=== PATIENT | female | born 2000 | race Caucasian/White ===

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

== ENCOUNTER 2020-08-08 23:52 | Emergency (ER) | payer OTHER ==
[~2020-08-08] VITALS: Ht 170.2 cm; Wt 83.5 kg
== END 2020-08-09 02:42 | disposition home or self-care (01) ==
LOC: ER 23:52
DX: R68.84 Jaw pain (principal); Z88.0 Allergy status to penicillin; Z88.1 Allergy status to other antibiotic agents
CPT/HCPCS: 99282

== ENCOUNTER 2020-10-13 23:36 | Emergency (ER) | payer OTHER ==
[~2020-10-13] VITALS: Ht 170.2 cm; Wt 85.7 kg
[2020-10-14] MEDS ORDERED: CYCL10 PO (00:47)
[2020-10-14] MEDS ORDERED: IBUP600 PO (00:47)
[2020-10-15] MEDS ORDERED: Bactrim Ds Tab1 EACH PO (06:15)
[2020-10-15] MEDS ORDERED: ONDA4ODT MM (06:15)
== END 2020-10-14 00:58 | disposition home or self-care (01) ==
LOC: ER 23:36
DX: M54.5 Low back pain (principal); Z88.1 Allergy status to other antibiotic agents
CPT/HCPCS: 96372; 99283-25; A9270; J1885

== ENCOUNTER 2020-10-15 03:53 | Emergency (ER) | payer OTHER ==
[~2020-10-15] VITALS: Ht 170.2 cm; Wt 87.1 kg
[~2020-10-15 03:53] MED LIST changes: +CYCL10 PO
[2020-10-15 05:14] LABS: Source, Urine Clean Catch
[2020-10-15 05:15] LABS: Bilirubin, Urine Neg (Neg); Blood, Urine 2+ (Neg); Glucose Qualitative, Urine Neg (Neg); Ketones, Urine Neg (Neg); Leukocyte Esterase, Urine 2+ (Neg); Nitrite, Urine Neg (Neg); Protein, Urine Neg (Neg); Specific Gravity, Urine 1.025 (1.003-1.022); Urobilinogen, Urine NORM (Normal)
[2020-10-15 05:41] LABS: Appearance, Urine Hazy (Clear); Color, Urine Yellow (P-Yellow)
[2020-10-15 05:42] LABS: Bacteria Many /hpf; Squamous Epithelial Cells Many /hpf (Few)
[2020-10-15] MEDS ORDERED: Bactrim Ds Tab1 EACH PO (06:15)
[2020-10-15] MEDS ORDERED: ONDA4ODT MM (06:15)
== END 2020-10-15 06:22 | disposition home or self-care (01) ==
LOC: ER 03:53
PROVIDERS: Emergency Medicine
DX: N39.0 Urinary tract infection, site not specified (principal); F17.290 Nicotine dependence, other tobacco product, uncomplicated; Z88.0 Allergy status to penicillin; Z88.1 Allergy status to other antibiotic agents
CPT/HCPCS: 36415; 80053; 81001; 81025; 84443; 84703; 85025; 87086; 99284; A9270

== ENCOUNTER → 2020-10-18 | Outpatient (CLI) | payer OTHER ==
[~2020-10-18] MED LIST changes: +BACTRIM 400-801 EACH PO; +ONDA4ODT MM
== END | disposition home or self-care (01) ==
LOC: LAB 20:51 → LAB SHORT 20:51
DX: R11.2 Nausea with vomiting, unspecified (principal)
CPT/HCPCS: 87338

== ENCOUNTER 2020-10-20 02:24 | Emergency (ER) | payer OTHER ==
[~2020-10-20] VITALS: Ht 170.2 cm; Wt 87.1 kg
[~2020-10-20 02:24] MED LIST changes: -BACTRIM 400-801 EACH PO
[2020-10-20] MEDS ORDERED: BACTRIM 400-801 EACH PO (03:03)
== END 2020-10-20 03:20 | disposition home or self-care (01) ==
LOC: ER 02:24
DX: R07.9 Chest pain, unspecified (principal)
CPT/HCPCS: 99283

== ENCOUNTER 2021-02-04 22:06 | Emergency (ER) | payer OTHER ==
[~2021-02-04] VITALS: Ht 170.2 cm; Wt 83.0 kg
[~2021-02-04 22:06] MED LIST changes: +BACTRIM 400-801 EACH PO
[2021-02-05] MEDS ORDERED: CIPRODEX OTIC7.5 M1 LEFTEAR (01:00)
== END 2021-02-05 01:40 | disposition home or self-care (01) ==
LOC: ER 22:06
DX: B34.9 Viral infection, unspecified (principal); H60.92 Unspecified otitis externa, left ear; Z20.822 Contact with and (suspected) exposure to COVID-19; Z88.8 Allergy status to other drugs, medicaments and biological substances; Z88.1 Allergy status to other antibiotic agents; F17.200 Nicotine dependence, unspecified, uncomplicated
CPT/HCPCS: 87430; 99283

== ENCOUNTER 2021-03-05 22:29 | Emergency (ER) | payer OTHER ==
[~2021-03-05] VITALS: Ht 170.2 cm; Wt 89.8 kg
[~2021-03-05 22:29] MED LIST changes: +CIPRODEX OTIC7.5 M1 LEFTEAR
[2021-03-05 23:10] LABS: Source, Urine Clean Catch
[2021-03-05 23:12] LABS: BASOPHILS ABSOLUTE AUTO 0.04 K/mm3 (0.00-0.23); BASOPHILS PERCENT AUTO 0 % (0-2); EOSINOPHILS ABSOLUTE AUTO 0.29 K/mm3 (0.00-0.68); EOSINOPHILS PERCENT AUTO 3 % (0-6); Hematocrit 46.2 % (33.0-51.0); Hemoglobin 14.8 g/dL (11.5-16.0); IMMATURE GRAN ABSOLUTE AUTO 0.04 K/mm3 (0.00-0.10); IMMATURE GRAN PERCENT AUTO 0 % (0-1); LYMPHOCYTES ABSOLUTE AUTO 3.51 K/mm3 (0.84-5.20); LYMPHOCYTES PERCENT AUTO 32 % (21-46); MONOCYTES ABSOLUTE AUTO 0.65 K/mm3 (0.16-1.47); MONOCYTES PERCENT AUTO 6 % (4-13); Mean Corpuscular HGB 28.1 pg (26.0-34.0); Mean Corpuscular Volume 88 fL (80-100); Mean Platelet Volume 10.9 fL (9.1-12.4); NEUTROPHILS ABSOLUTE AUTO 6.55 K/mm3 (1.96-9.15); NEUTROPHILS PERCENT AUTO 59 % (41-73); Platelet Count 317 K/mm3 (150-400); RDW Coefficient Variation 12.3 % (11.7-14.2); RDW Standard Deviation 39.9 fL (35.1-46.3); Red Blood Cell Count 5.26 M/mm3 (3.80-5.20); White Blood Cell Count 11.08 K/mm3 (4.00-11.30)
[2021-03-05 23:19] LABS: Bilirubin, Urine Neg (Neg); Blood, Urine 2+ (Neg); Glucose Qualitative, Urine Neg (Neg); Ketones, Urine Neg (Neg); Leukocyte Esterase, Urine Neg (Neg); Nitrite, Urine Neg (Neg); Protein, Urine 1+ (Neg); Urobilinogen, Urine 1+ (Normal)
[2021-03-05 23:25] LABS: Appearance, Urine Clear (Clear); Color, Urine Yellow (P-Yellow)
[2021-03-05 23:26] LABS: Bacteria Mod /hpf; Red Blood Cells, Urine 0-2 /hpf (0-2); Squamous Epithelial Cells Mod /hpf (Few); White Blood Cells, Urine Rare /hpf (0-5)
[2021-03-05 23:30] LABS: Alanine Aminotransfer (ALT/SGP 29 U/L (12-78); Albumin, Blood 3.9 g/dL (3.4-5.0); Albumin/Globulin Ratio 0.9 (0.8-1.8); Alk Phos 92 U/L (50-136); Anion Gap 4 mmol/L (6-16); Aspartate Aminotrans (AST/SGOT 15 U/L (12-37); Bilirubin, Total 0.2 mg/dL (0.1-1.0); Blood Urea Nitrogen 13 mg/dL (8-24); Bun/Creatinine Ratio 16.3 (12.0-20.0); CO2, Blood 29 mmol/L (21-32); Calcium, Blood 9.1 mg/dL (8.5-10.1); Chloride, Blood 106 mmol/L (98-108); Globulin, Blood 4.5 g/dL (2.2-4.0); Glomerular Filtration Rate >60 (60-); Glucose, Blood 92 mg/dL (70-99); Potassium, Blood 3.6 mmol/L (3.5-5.5); Sodium, Blood 139 mmol/L (136-145); Total Protein, Blood 8.4 g/dL (6.4-8.2)
[2021-03-06] MEDS ORDERED: SULTRISS PO (00:17)
== END 2021-03-06 01:00 | disposition home or self-care (01) ==
LOC: ER 22:29
PROVIDERS: Emergency Medicine
DX: A08.4 Viral intestinal infection, unspecified (principal); N39.0 Urinary tract infection, site not specified; Z88.8 Allergy status to other drugs, medicaments and biological substances; Z88.0 Allergy status to penicillin; Z88.1 Allergy status to other antibiotic agents; F17.200 Nicotine dependence, unspecified, uncomplicated
CPT/HCPCS: 36415; 80053; 81001; 81025; 83690; 85025; 87086; A9270

== ENCOUNTER 2021-08-07 21:20 | Emergency (ER) | payer OTHER ==
[~2021-08-07] VITALS: Ht 170.2 cm; Wt 99.8 kg
[~2021-08-07 21:20] MED LIST changes: +FAMO20 PO; +METO10 PO; +SULTRISS PO
== END 2021-08-07 23:14 | disposition home or self-care (01) ==
LOC: ER 21:20
DX: M79.645 Pain in left finger(s) (principal); F17.210 Nicotine dependence, cigarettes, uncomplicated; Z88.0 Allergy status to penicillin; Z88.1 Allergy status to other antibiotic agents; Z88.8 Allergy status to other drugs, medicaments and biological substances; Z79.899 Other long term (current) drug therapy
CPT/HCPCS: 99283

== ENCOUNTER 2021-08-20 00:40 | Emergency (ER) | payer OTHER ==
[~2021-08-20] VITALS: Ht 180.3 cm; Wt 104.3 kg
== END 2021-08-20 04:06 | disposition home or self-care (01) ==
LOC: ER 00:40
DX: S43.401A Unspecified sprain of right shoulder joint, initial encounter (principal); F17.210 Nicotine dependence, cigarettes, uncomplicated; Z88.5 Allergy status to narcotic agent; Z88.0 Allergy status to penicillin; Z79.899 Other long term (current) drug therapy; W19.XXXA Unspecified fall, initial encounter
CPT/HCPCS: 73030; A9270

== ENCOUNTER 2021-09-07 22:05 | Emergency (ER) | payer OTHER ==
[~2021-09-07] VITALS: Ht 170.2 cm; Wt 95.2 kg
== END 2021-09-07 22:55 | disposition home or self-care (01) ==
LOC: ER 22:05
DX: H92.01 Otalgia, right ear (principal); F17.210 Nicotine dependence, cigarettes, uncomplicated; Z79.899 Other long term (current) drug therapy
CPT/HCPCS: 96372; 99282-25; J1885

== ENCOUNTER 2022-06-06 00:37 | Emergency (ER) | payer OTHER ==
[~2022-06-06] VITALS: Ht 170.2 cm; Wt 95.2 kg
[2022-06-06 01:06] LABS: Source, Urine Clean Catch
[2022-06-06 01:12] LABS: Bilirubin, Urine Neg (Neg); Blood, Urine 1+ (Neg); Glucose Qualitative, Urine Neg (Neg); Ketones, Urine Neg (Neg); Leukocyte Esterase, Urine 3+ (Neg); Nitrite, Urine Neg (Neg); Protein, Urine 1+ (Neg); Urobilinogen, Urine 1+ (Normal)
[2022-06-06 01:18] LABS: Appearance, Urine Hazy (Clear); Color, Urine Yellow (P-Yellow)
[2022-06-06 01:20] LABS: Red Blood Cells, Urine 0-2 /hpf (0-2); Squamous Epithelial Cells Mod /hpf (Few)
[2022-06-06 01:21] LABS: Bacteria Many /hpf
[2022-06-06] MEDS ORDERED: NITR100CA PO (03:34)
== END 2022-06-06 03:39 | disposition home or self-care (01) ==
LOC: ER 00:37
PROVIDERS: Student in an Organized Health Care Education/Training Program
DX: O23.42 Unspecified infection of urinary tract in pregnancy, second trimester (principal); Z3A.19 19 weeks gestation of pregnancy; Z88.0 Allergy status to penicillin; Z88.8 Allergy status to other drugs, medicaments and biological substances; O99.332 Smoking (tobacco) complicating pregnancy, second trimester; F17.210 Nicotine dependence, cigarettes, uncomplicated
CPT/HCPCS: 76815; 76817; 81001; 81025; 87086; 99284-25

== ENCOUNTER → 2022-06-12 | Outpatient (CLI) | payer OTHER ==
[~2022-06-12] MED LIST changes: +NITR100CA PO
[2022-06-13 08:32] LABS: Candida species (DNA Probe) Positive (NEGATIVE); G. vaginalis (DNA Probe) Positive (NEGATIVE); T. vaginalis (DNA Probe) Negative (NEGATIVE)
== END | disposition home or self-care (01) ==
LOC: LAB 12:11 → LAB SHORT 12:11
PROVIDERS: Advanced Practice Midwife
DX: N76.0 Acute vaginitis (principal)
CPT/HCPCS: 87480; 87510; 87660

== ENCOUNTER → 2022-07-12 | Outpatient (CLI) | payer OTHER ==
[2022-07-13 10:33] LABS: Candida species (DNA Probe) Positive (NEGATIVE); G. vaginalis (DNA Probe) Positive (NEGATIVE); T. vaginalis (DNA Probe) Negative (NEGATIVE)
== END | disposition home or self-care (01) ==
LOC: LAB 10:58 → LAB SHORT 10:58
PROVIDERS: Advanced Practice Midwife
DX: N76.0 Acute vaginitis (principal)
CPT/HCPCS: 87480; 87510; 87660

== ENCOUNTER → 2022-09-21 | Outpatient (CLI) | payer OTHER ==
[2022-09-22 08:49] LABS: Candida species (DNA Probe) Positive (NEGATIVE); G. vaginalis (DNA Probe) Negative (NEGATIVE); T. vaginalis (DNA Probe) Negative (NEGATIVE)
== END | disposition home or self-care (01) ==
LOC: LAB SHORT 18:40 → LAB 18:40
PROVIDERS: Advanced Practice Midwife
DX: N76.0 Acute vaginitis (principal)
CPT/HCPCS: 87480; 87510; 87660

== ENCOUNTER → 2022-10-05 | Outpatient (CLI) | payer OTHER | LOC: LAB SHORT 13:29 → LAB 13:29 | DX: O09.92 Supervision of high risk pregnancy, unspecified, second trimester (principal); Z3A.00 Weeks of gestation of pregnancy not specified | CPT/HCPCS: 87081; 87150 ==

== ENCOUNTER 2022-10-26 06:59 | Inpatient (IN) | payer OTHER ==
[2022-10-26] VITALS (26 sets, daily range): BP systolic 88–139; BP diastolic 45–81
[~2022-10-26] VITALS: Ht 170.2 cm; Wt 112.7 kg
[2022-10-26] MEDS ORDERED: METR500 PO (07:19)
[2022-10-26 08:06] LABS: BASOPHILS ABSOLUTE AUTO 0.03 K/mm3 (0.00-0.23); BASOPHILS PERCENT AUTO 0 % (0-2); EOSINOPHILS ABSOLUTE AUTO 0.08 K/mm3 (0.00-0.68); EOSINOPHILS PERCENT AUTO 1 % (0-6); Hematocrit 35.7 % (33.0-51.0); Hemoglobin 11.9 g/dL (11.5-16.0); IMMATURE GRAN ABSOLUTE AUTO 0.04 K/mm3 (0.00-0.10); IMMATURE GRAN PERCENT AUTO 0 % (0-1); LYMPHOCYTES ABSOLUTE AUTO 2.53 K/mm3 (0.84-5.20); LYMPHOCYTES PERCENT AUTO 22 % (21-46); MONOCYTES ABSOLUTE AUTO 0.72 K/mm3 (0.16-1.47); MONOCYTES PERCENT AUTO 6 % (4-13); Mean Corpuscular HGB 28.5 pg (26.0-34.0); Mean Corpuscular HGB Conc 33.3 g/dL (31.5-36.5); Mean Corpuscular Volume 86 fL (80-100); Mean Platelet Volume 12.6 fL (9.1-12.4); NEUTROPHILS ABSOLUTE AUTO 8.27 K/mm3 (1.96-9.15); NEUTROPHILS PERCENT AUTO 71 % (41-73); Platelet Count 210 K/mm3 (150-400); RDW Coefficient Variation 12.7 % (11.7-14.2); RDW Standard Deviation 39.1 fL (35.1-46.3); Red Blood Cell Count 4.17 M/mm3 (3.80-5.20); White Blood Cell Count 11.67 K/mm3 (4.00-11.30)
[2022-10-27 00:36] VITALS: BP 104/56
[2022-10-27 03:56] VITALS: BP 98/61
[2022-10-27 07:39] VITALS: BP 108/57
[2022-10-27 11:51] VITALS: BP 121/63
[2022-10-27 16:25] VITALS: BP 109/54
[2022-10-28 08:26] VITALS: BP 96/52
[2022-10-28] MEDS ORDERED: IBUP800 PO (09:28)
--- NOTE | 2022-10-28 10:17 | NUR ---
DISCHARGE INSTRUCTIONS, WRITTEN AND VERBAL, GIVEN TO PT AND Ann Marie GROVER. ANSWERED ALL QUESITONS AND CONCERNS. IV DISCONTINUED. F/U APPOINTMENT SCHEDULED. PT REFUSED RUBELLA VACCINE WHEN OFFERED. ALL PERSONAL BELONGINGS RETURNED. PT IS READY FOR DISCHARGE.
== END 2022-10-28 11:07 | disposition home or self-care (01) | DRG 806 ==
LOC: OBS 06:59 → BC 07:00 → OBS 07:11 → BC 07:12
PROVIDERS: ADMIT Advanced Practice Midwife
PROC: 10E0XZZ Delivery of Products of Conception, External Approach (ICD-10-PCS; principal; 2022-10-26)
PROC: 0KQM0ZZ Repair Perineum Muscle, Open Approach (ICD-10-PCS; 2022-10-26)
PROC: 10907ZC Drainage of Amniotic Fluid, Therapeutic from Products of Conception, Via Natural or Artificial Opening (ICD-10-PCS; 2022-10-26)
PROC: 3E033VJ Introduction of Other Hormone into Peripheral Vein, Percutaneous Approach (ICD-10-PCS; 2022-10-26)
PROC: 3E0R3BZ Introduction of Anesthetic Agent into Spinal Canal, Percutaneous Approach (ICD-10-PCS; 2022-10-26)
PROC: 00HU33Z Insertion of Infusion Device into Spinal Canal, Percutaneous Approach (ICD-10-PCS; 2022-10-26)
PROC: 0U7C7ZZ Dilation of Cervix, Via Natural or Artificial Opening (ICD-10-PCS; 2022-10-26)
DX: O99.344 Other mental disorders complicating childbirth (principal); O23.593 Infection of other part of genital tract in pregnancy, third trimester; Z37.0 Single live birth; O99.214 Obesity complicating childbirth; Z3A.39 39 weeks gestation of pregnancy; F41.8 Other specified anxiety disorders; O70.1 Second degree perineal laceration during delivery; Z88.1 Allergy status to other antibiotic agents; Z88.8 Allergy status to other drugs, medicaments and biological substances; O77.0 Labor and delivery complicated by meconium in amniotic fluid
CPT/HCPCS: 36415; 51702; 85025; 86850; 86900; 86901; A9270; J1885; J2001; J2405; J2590; J3010; J7120

== ENCOUNTER 2022-11-12 21:02 | Emergency (ER) | payer OTHER ==
[~2022-11-12] VITALS: Ht 170.2 cm; Wt 105.2 kg
[~2022-11-12 21:02] MED LIST changes: +METR500 PO
[2022-11-12 21:48] VITALS: BP 113/71
[2022-11-12 22:30] LABS: Influenza A, PCR NEGATIVE (NEGATIVE); Influenza B, PCR NEGATIVE (NEGATIVE); Resp Syncytial Virus, PCR NEGATIVE (NEGATIVE); SARS-Cov-2 (COVID-19) PCR, MMC NEGATIVE (NEGATIVE)
== END 2022-11-13 00:03 | disposition home or self-care (01) ==
LOC: ER 21:02
PROVIDERS: Physician Assistant
DX: J06.9 Acute upper respiratory infection, unspecified (principal); Z20.822 Contact with and (suspected) exposure to COVID-19; Z88.1 Allergy status to other antibiotic agents; Z88.8 Allergy status to other drugs, medicaments and biological substances; Z88.0 Allergy status to penicillin; F17.210 Nicotine dependence, cigarettes, uncomplicated
CPT/HCPCS: 0241U; 99283

== ENCOUNTER 2022-12-09 04:07 | Emergency (ER) | payer OTHER ==
[~2022-12-09] VITALS: Ht 170.2 cm; Wt 102.1 kg
[2022-12-09] MEDS ORDERED: IBU800 M1 PO (04:30)
[2022-12-09] MEDS ORDERED: ONDA4 PO (04:32)
[2022-12-09 05:48] VITALS: BP 103/56
== END 2022-12-09 05:45 | disposition home or self-care (01) ==
LOC: ER 04:07
DX: K40.90 Unilateral inguinal hernia, without obstruction or gangrene, not specified as recurrent (principal); Z88.1 Allergy status to other antibiotic agents; Z88.8 Allergy status to other drugs, medicaments and biological substances; Z88.0 Allergy status to penicillin; F17.210 Nicotine dependence, cigarettes, uncomplicated
CPT/HCPCS: 76830; 76856; 99283-25

== ENCOUNTER → 2023-06-20 | Outpatient (CLI) | payer OTHER ==
[~2023-06-20] MED LIST changes: +IBU800 M1 PO; +METPRE4DP PO; +ONDA4 PO; +OXYC5 PO
== END ==
LOC: LAB 17:57 → LAB SHORT 17:57
PROVIDERS: Advanced Practice Midwife
DX: Z01.419 Encounter for gynecological examination (general) (routine) without abnormal findings (principal)
CPT/HCPCS: G0123

== ENCOUNTER 2023-09-11 15:05 | Emergency (ER) | payer OTHER ==
[~2023-09-11] VITALS: Ht 170.2 cm; Wt 99.8 kg
[2023-09-11 15:27] VITALS: BP 131/89
[2023-09-11] MEDS ORDERED: Silver Sulfadiazine 1% Cream 25 APPLIC/25 GM Tube TOP ONE (15:50)
== END 2023-09-11 16:25 | disposition home or self-care (01) ==
LOC: ER 15:05
DX: T23.242A Burn of second degree of multiple left fingers (nail), including thumb, initial encounter (principal); F17.210 Nicotine dependence, cigarettes, uncomplicated; X18.XXXA Contact with other hot metals, initial encounter; Z88.0 Allergy status to penicillin; Z88.8 Allergy status to other drugs, medicaments and biological substances
CPT/HCPCS: 99284; A9270

== ENCOUNTER 2024-03-17 19:38 | Emergency (ER) | payer OTHER ==
[~2024-03-17] VITALS: Ht 167.6 cm; Wt 81.7 kg
[2024-03-17 19:48] VITALS: BP 124/67
[2024-03-17 20:10] LABS: Source, Urine Clean Catch
[2024-03-17 20:20] LABS: Appearance, Urine Hazy (Clear); Bilirubin, Urine Neg (Neg); Blood, Urine Neg (Neg); Color, Urine Yellow (P-Yellow); Glucose Qualitative, Urine Neg (Neg); Ketones, Urine Neg (Neg); Leukocyte Esterase, Urine 2+ (Neg); Nitrite, Urine Neg (Neg); Protein, Urine 1+ (Neg); Specific Gravity, Urine 1.025 (1.003-1.022); Urobilinogen, Urine NORM (Normal)
[2024-03-17 20:26] LABS: Bacteria Mod /hpf; Red Blood Cells, Urine 0-2 /hpf (0-2); Squamous Epithelial Cells Mod /hpf (Few)
[2024-03-17 20:28] LABS: BASOPHILS ABSOLUTE AUTO 0.03 K/mm3 (0.00-0.23); BASOPHILS PERCENT AUTO 0 % (0-2); EOSINOPHILS ABSOLUTE AUTO 0.17 K/mm3 (0.00-0.68); EOSINOPHILS PERCENT AUTO 2 % (0-6); Hematocrit 39.7 % (33.0-51.0); IMMATURE GRAN ABSOLUTE AUTO 0.01 K/mm3 (0.00-0.10); IMMATURE GRAN PERCENT AUTO 0 % (0-1); LYMPHOCYTES ABSOLUTE AUTO 2.44 K/mm3 (0.84-5.20); LYMPHOCYTES PERCENT AUTO 32 % (21-46); MONOCYTES ABSOLUTE AUTO 0.36 K/mm3 (0.16-1.47); MONOCYTES PERCENT AUTO 5 % (4-13); Mean Corpuscular HGB 27.9 pg (26.0-34.0); Mean Corpuscular HGB Conc 32.7 g/dL (31.5-36.5); Mean Corpuscular Volume 85 fL (80-100); Mean Platelet Volume 11.2 fL (9.1-12.4); NEUTROPHILS ABSOLUTE AUTO 4.65 K/mm3 (1.96-9.15); NEUTROPHILS PERCENT AUTO 61 % (41-73); Platelet Count 264 K/mm3 (150-400); RDW Coefficient Variation 12.1 % (11.7-14.2); RDW Standard Deviation 37.3 fL (35.1-46.3); Red Blood Cell Count 4.66 M/mm3 (3.80-5.20); White Blood Cell Count 7.66 K/mm3 (4.00-11.30)
[2024-03-17 20:49] LABS: Albumin, Blood 3.8 g/dL (3.4-5.0); Albumin/Globulin Ratio 0.9 (0.8-1.8); Bilirubin, Total 0.2 mg/dL (0.1-1.0); Bun/Creatinine Ratio 17.2 (12.0-20.0); Calcium, Blood 9.1 mg/dL (8.5-10.1); Creatinine, Blood 0.7 mg/dL (0.40-1.00); Globulin, Blood 4.1 g/dL (2.2-4.0); Potassium, Blood 3.7 mmol/L (3.5-5.5); Total Protein, Blood 7.9 g/dL (6.4-8.2)
[2024-03-17] MEDS ORDERED: ONDA4ODT MM (22:49)
== END 2024-03-17 23:06 | disposition home or self-care (01) ==
LOC: ER 19:38
PROVIDERS: Physician Assistant
DX: S39.012A Strain of muscle, fascia and tendon of lower back, initial encounter (principal); K80.20 Calculus of gallbladder without cholecystitis without obstruction; F17.200 Nicotine dependence, unspecified, uncomplicated; Z88.0 Allergy status to penicillin; Z88.1 Allergy status to other antibiotic agents
CPT/HCPCS: 74177; 80053; 81001; 81025; 85025; 87086; 99284-25; Q9967